=== PATIENT | female | born 1985 | race African-American/Black ===

== ENCOUNTER 2024-05-06 15:34 | Emergency (ER) | payer OTHER ==
[2024-05-06] MEDS ORDERED: Ketorolac Tromethamine 30 MG (1 mL) VIAL ONE (17:16)
[2024-05-06] MEDS ORDERED: Dexamethasone 20 MG/5 ML VIAL ONE (17:16)
[2024-05-06] MEDS ORDERED: Cyclobenzaprine 10 MG TAB ONE (17:18)
== END 2024-05-06 18:46 | disposition home or self-care (01) ==
LOC: CSHERS 15:34
DX: M54.50 Low back pain, unspecified (principal); M54.6 Pain in thoracic spine; I10 Essential (primary) hypertension; F17.210 Nicotine dependence, cigarettes, uncomplicated; W01.0XXA Fall on same level from slipping, tripping and stumbling without subsequent striking against object, initial encounter; Y93.89 Activity, other specified; Y92.511 Restaurant or cafe as the place of occurrence of the external cause; Z79.899 Other long term (current) drug therapy
CPT/HCPCS: 72125; 72128; 72131; 96372; J1100; J1885

== ENCOUNTER 2024-05-17 17:19 | Emergency (ER) | payer OTHER | END 2024-05-17 18:54 | disposition home or self-care (01) | LOC: CSHERS 17:19 | DX: S16.1XXA Strain of muscle, fascia and tendon at neck level, initial encounter (principal); S29.012A Strain of muscle and tendon of back wall of thorax, initial encounter; F17.210 Nicotine dependence, cigarettes, uncomplicated; I10 Essential (primary) hypertension; V89.2XXA Person injured in unspecified motor-vehicle accident, traffic, initial encounter | CPT/HCPCS: 72040; 72072; 72100; 99283 ==